=== PATIENT | male | born 1980 | race Caucasian/White ===

== ENCOUNTER 2018-07-23 12:22 | Outpatient (REF) | payer MEDICAID, SELFPAY ==
[2018-07-23 20:55] LABS: Abs Immature Grans 0.04 k/cumm (0.0-0.09); Absolute Basophil Count 0.04 k/cumm (0.0-0.2); Absolute Eosinophil Count 0.21 k/cumm (0.0-0.7); Absolute Monocyte Count 1.28 k/cumm (0.11-0.7); Basophils % 0.3; Eosinophils % 1.6; HCT 47.4 % (40.0-50.0); HGB 16.2 g/dL (13.5-17.5); Immature Grans % 0.3; Lymphocytes % 24.7; Mean Corp. HGB Concentration 34.2 g/dL (32.0-36.0); Mean Corpuscular Hemoglobin 29.2 pg (27.0-33.0); Mean Corpuscular Volume 85.6 fL (80-95); Monocytes % 9.6; Neutrophils % 63.5; Platelet Count 358 x1000/uL (130-400); RBC 5.54 m/cumm (4.50-6.00); RBC Distribution Width 14.3 % (11.8-14.1); White Blood Cell Count 13.38 k/cumm (4.4-10.8)
[2018-07-24 06:47] LABS: ALT 55 U/L (12-78); AST 22 U/L (15-37); Albumin 3.9 g/dL (3.4-5.0); Alkaline Phosphatase 128 U/L (46-116); BUN 16 mg/dL (7-18); Bilirubin, Total 0.3 mg/dL (0.2-1.0); CREATININE 1.17 mg/dL (0.70-1.30); Calcium 9.2 mg/dL (8.5-10.1); Chloride 102 mmol/L (98-107); Glucose 98 mg/dL (70-100); Potassium 4.3 mmol/L (3.5-5.1); Sodium 139 mmol/L (136-145); TSH (W/Ref FT4) 2.49 uIU/mL (0.358-3.74); Total Protein 6.8 g/dL (6.4-8.2)
== END 2018-07-23 12:42 ==
LOC: NCHCN 12:22
PROVIDERS: PCP Physician Assistant Medical; Visit Provider Physician Assistant Medical
DX: R00.2 Palpitations (principal)
CPT/HCPCS: 80053; 84443; 85025

== ENCOUNTER 2019-02-03 13:13 | Outpatient (REF) | payer MEDICAID, SELFPAY ==
[2019-02-03 21:23] LABS: Calculated LDL 165 mg/dL; Cholesterol 227 mg/dL (50-200); HDL Cholesterol 29 mg/dL (40-60); Triglyceride 167 mg/dL (30-150)
== END 2019-02-03 13:33 ==
LOC: NCHCN 13:13
PROVIDERS: PCP Physician Assistant Medical; Visit Provider Physician Assistant Medical
DX: Z13.220 Encounter for screening for lipoid disorders (principal); Z00.00 Encounter for general adult medical examination without abnormal findings
CPT/HCPCS: 80061

== ENCOUNTER 2019-03-26 16:21 | Emergency (ER) | payer MEDICAID, SELFPAY ==
[2019-03-26 16:36] VITALS: BP 147/82; PULSE 122; RESP 16; TEMP 36.6; O2SAT 95
--- NOTE | 2019-03-26 16:49 | NUR.NOTE ---
facial and upper lip lac cleaned and repaired ( sutures ) Nursing Note:
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
== END 2019-03-26 17:25 | disposition home or self-care (01) ==
LOC: ER 17:19
PROVIDERS: Emergency Provider Emergency Medicine; PCP Physician Assistant Medical
DX: S01.412A Laceration without foreign body of left cheek and temporomandibular area, initial encounter (principal); S01.511A Laceration without foreign body of lip, initial encounter; S61.411A Laceration without foreign body of right hand, initial encounter; X99.1XXA Assault by knife, initial encounter
CPT/HCPCS: 12002; 12013

== ENCOUNTER 2020-02-18 13:49 | Outpatient (REF) | payer MEDICAID, SELFPAY ==
[2020-02-24 02:26] LABS: Patient Race White; SARS-CoV-2 RNA Undetected (Undetected); SARS-CoV-2 Specimen Source Nasal
== END 2020-02-18 14:09 ==
LOC: NCHCN 13:49
PROVIDERS: PCP Physician Assistant Medical; Visit Provider Physician Assistant Medical
DX: R50.9 Fever, unspecified (principal)
CPT/HCPCS: U0003

== ENCOUNTER 2020-06-01 14:36 | Outpatient (CLI) | payer MEDICAID, SELFPAY ==
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
== END 2020-06-01 14:37 | disposition home or self-care (01) ==
LOC: DIORS 14:36
PROVIDERS: PCP Physician Assistant Medical; Referring Provider Physician Assistant Medical; Visit Provider Physician Assistant
DX: M19.012 Primary osteoarthritis, left shoulder (principal); M25.812 Other specified joint disorders, left shoulder
CPT/HCPCS: 73030

== ENCOUNTER 2020-06-17 17:17 | Outpatient (REF) | payer MEDICAID, SELFPAY ==
[2020-06-19 14:15] LABS: COVID-19 RT-PCR UVMMC Result Negative (Negative)
== END 2020-06-17 17:18 | disposition home or self-care (01) ==
LOC: NCHCN 17:17
PROVIDERS: PCP Physician Assistant Medical; Visit Provider Nurse Practitioner Family
DX: Z20.822 Contact with and (suspected) exposure to COVID-19 (principal); R06.02 Shortness of breath; R05 Cough; J02.9 Acute pharyngitis, unspecified
CPT/HCPCS: U0003

== ENCOUNTER 2020-11-29 15:29 | Outpatient (REF) | payer MEDICAID, SELFPAY ==
[2020-11-29 20:50] LABS: ALT 49 U/L (16-63); AST 21 U/L (15-37); Albumin 3.9 g/dL (3.4-5.0); Alkaline Phosphatase 150 U/L (46-116); BUN 13 mg/dL (7-18); Bilirubin, Total 0.2 mg/dL (0.2-1.0); CREATININE 1.1 mg/dL (0.70-1.30); Calcium 9.2 mg/dL (8.5-10.1); Calculated LDL 143 mg/dL (<100); Chloride 102 mmol/L (98-107); Cholesterol 244 mg/dL (<200); Glucose 176 mg/dL (74-106); HDL Cholesterol 27 mg/dL (40-60); Potassium 4.2 mmol/L (3.5-5.1); Sodium 138 mmol/L (136-145); Total Protein 6.8 g/dL (6.4-8.2); Triglyceride 370 mg/dL (<150)
== END 2020-11-29 15:30 | disposition home or self-care (01) ==
LOC: NCHCN 15:29
PROVIDERS: PCP Physician Assistant Medical; Visit Provider Physician Assistant Medical
DX: E11.65 Type 2 diabetes mellitus with hyperglycemia (principal)
CPT/HCPCS: 80053; 80061

== ENCOUNTER 2021-02-16 15:41 | Outpatient (REF) | payer MEDICAID, SELFPAY ==
[2021-02-16 22:03] LABS: Hemoglobin A1C 7.5 % (<5.7)
[2021-02-16 22:13] LABS: ALT 52 U/L (16-63); AST 18 U/L (15-37); Albumin 4.2 g/dL (3.4-5.0); Alkaline Phosphatase 154 U/L (46-116); BUN 14 mg/dL (7-18); Bilirubin, Total 0.3 mg/dL (0.2-1.0); CREATININE 1.2 mg/dL (0.70-1.30); Calcium 8.9 mg/dL (8.5-10.1); Calculated LDL 186 mg/dL (<100); Chloride 102 mmol/L (98-107); Cholesterol 254 mg/dL (<200); Glucose 121 mg/dL (74-106); HDL Cholesterol 32 mg/dL (40-60); Potassium 4.1 mmol/L (3.5-5.1); Sodium 139 mmol/L (136-145); Total Protein 7.1 g/dL (6.4-8.2); Triglyceride 182 mg/dL (<150)
== END 2021-02-16 15:42 | disposition home or self-care (01) ==
LOC: NCHCN 15:41
PROVIDERS: PCP Physician Assistant Medical; Visit Provider Physician Assistant Medical
DX: E78.5 Hyperlipidemia, unspecified (principal); E11.65 Type 2 diabetes mellitus with hyperglycemia
CPT/HCPCS: 80053; 80061; 83036

== ENCOUNTER 2021-06-06 15:09 | Outpatient (REF) | payer MEDICAID, SELFPAY ==
[2021-06-06 20:09] LABS: ALT 58 U/L (16-63); AST 19 U/L (15-37); Alkaline Phosphatase 120 U/L (46-116); Anion Gap 10.8 mmol/L (3-11); BUN 17 mg/dL (7-18); Bilirubin, Total 0.3 mg/dL (0.2-1.0); CO2 26.2 mmol/L (21.0-32.0); CREATININE 1.5 mg/dL (0.70-1.30); Calcium 8.7 mg/dL (8.5-10.1); Calculated LDL 152 mg/dL (<100); Chloride 101 mmol/L (98-107); Cholesterol 243 mg/dL (<200); Estimated GFR 51.57 (mL/min/1.73m2); Glucose 143 mg/dL (74-106); HDL Cholesterol 30 mg/dL (40-60); Potassium 4.5 mmol/L (3.5-5.1); Sodium 138 mmol/L (136-145); Total Protein 6.9 g/dL (6.4-8.2); Triglyceride 305 mg/dL (<150)
== END 2021-06-06 15:10 | disposition home or self-care (01) ==
LOC: NCHCN 15:09
PROVIDERS: PCP Physician Assistant Medical; Visit Provider Physician Assistant Medical
DX: E11.65 Type 2 diabetes mellitus with hyperglycemia (principal); E78.5 Hyperlipidemia, unspecified
CPT/HCPCS: 80053; 80061

== ENCOUNTER 2021-08-22 08:37 | Outpatient (REF) | payer MEDICAID, SELFPAY ==
[2021-08-22 16:17] LABS: Hemoglobin A1C 8.2 % (<5.7)
[2021-08-22 16:27] LABS: ALT 66 U/L (16-63); AST 24 U/L (15-37); Alkaline Phosphatase 150 U/L (46-116); BUN 16 mg/dL (7-18); Bilirubin, Total 0.3 mg/dL (0.2-1.0); CREATININE 1.4 mg/dL (0.70-1.30); Calcium 8.6 mg/dL (8.5-10.1); Chloride 99 mmol/L (98-107); Cholesterol 221 mg/dL (<200); Estimated GFR 55.85 (mL/min/1.73m2); Glucose 291 mg/dL (74-106); HDL Cholesterol 25 mg/dL (40-60); Sodium 136 mmol/L (136-145); Total Protein 6.8 g/dL (6.4-8.2); Triglyceride 601 mg/dL (<150)
[2021-08-22 17:25] LABS: LDL CHOLESTEROL 92 mg/dL (<100)
== END 2021-08-22 08:38 | disposition home or self-care (01) ==
LOC: NCHCN 08:37
PROVIDERS: PCP Physician Assistant Medical; Visit Provider Physician Assistant Medical
DX: E11.65 Type 2 diabetes mellitus with hyperglycemia (principal); E78.5 Hyperlipidemia, unspecified
CPT/HCPCS: 80053; 80061; 83721; 83036

== ENCOUNTER 2021-11-21 11:20 | Outpatient (REF) | payer MEDICAID, SELFPAY ==
[2021-11-21 16:12] LABS: HCT 50.5 % (40.0-50.0); MCHC 33.7 % (32.0-36.0); MCV 89 fL (80-95); MPV 10.2 fL (8.0-11.0); Platelet Count 345 10^3/uL (130-400); RBC 5.66 10^6/uL (4.36-5.78); RDW 13.5 % (11.8-14.1); RDW-SD 44.1 fL; WBC 10.72 10^3/uL (4.4-10.8)
[2021-11-21 16:23] LABS: ALT 61 U/L (16-63); AST 27 U/L (15-37); Albumin 4.1 g/dL (3.4-5.0); Alkaline Phosphatase 162 U/L (46-116); Anion Gap 9.6 mmol/L (3-11); BUN 17 mg/dL (7-18); Bilirubin, Total 0.3 mg/dL (0.2-1.0); CO2 23.4 mmol/L (21.0-32.0); CREATININE 1.3 mg/dL (0.70-1.30); Calcium 9.1 mg/dL (8.5-10.1); Chloride 102 mmol/L (98-107); Glucose 218 mg/dL (74-106); Potassium 4.1 mmol/L (3.5-5.1); Sodium 135 mmol/L (136-145); Total Protein 7.3 g/dL (6.4-8.2)
== END 2021-11-21 11:21 | disposition home or self-care (01) ==
LOC: NCHCN 11:20
PROVIDERS: PCP Physician Assistant Medical; Visit Provider Physician Assistant Medical
DX: E11.65 Type 2 diabetes mellitus with hyperglycemia (principal); R79.89 Other specified abnormal findings of blood chemistry
CPT/HCPCS: 80053; 85027

== ENCOUNTER 2022-08-25 15:07 | Outpatient (REF) | payer MEDICAID, SELFPAY ==
[2022-08-25 16:06] LABS: Hemoglobin A1C 9.8 % (<5.7)
[2022-08-25 16:25] LABS: ALT 47 U/L (16-63); AST 11 U/L (15-37); Albumin 3.8 g/dL (3.4-5.0); Alkaline Phosphatase 132 U/L (46-116); Anion Gap 8.1 mmol/L (3-11); BUN 20 mg/dL (7-18); Bilirubin, Total 0.2 mg/dL (0.2-1.0); CO2 27.9 mmol/L (21.0-32.0); CREATININE 1.3 mg/dL (0.70-1.30); Calcium 9.2 mg/dL (8.5-10.1); Chloride 102 mmol/L (98-107); Cholesterol 227 mg/dL (<200); Estimated GFR 70.34 (mL/min/1.73m2); Glucose 304 mg/dL (74-106); HDL Cholesterol 27 mg/dL (40-60); Potassium 4.4 mmol/L (3.5-5.1); Sodium 138 mmol/L (136-145); Total Protein 7.3 g/dL (6.4-8.2); Triglyceride 791 mg/dL (<150)
[2022-08-25 16:38] LABS: LDL CHOLESTEROL 83 mg/dL (<100)
== END 2022-08-25 15:08 | disposition home or self-care (01) ==
LOC: NCHCN 15:07
PROVIDERS: PCP Physician Assistant Medical; Visit Provider Physician Assistant Medical
DX: E11.65 Type 2 diabetes mellitus with hyperglycemia (principal); R79.89 Other specified abnormal findings of blood chemistry
CPT/HCPCS: 80053; 80061; 83721; 83036